=== PATIENT | female | born 1995 | race African-American/Black ===

== ENCOUNTER 2023-04-14 17:30 | Inpatient (IN) | payer MEDICAID ==
[~2023-04-14] VITALS: Ht 165.1 cm; Wt 66.0 kg
[2023-04-14] MEDS ORDERED: HALOPERIDOL 5 MG TABLET PO PRN (18:30)
[2023-04-14] MEDS ORDERED: ZOLPIDEM TARTRATE 10 MG TABLET PO PRN (18:30)
[2023-04-14] MEDS ORDERED: LORazepam 2 MG TABLET PO PRN (18:30)
[2023-04-14] MEDS ORDERED: INFLUENZA VIRUS VACCINE QVS 2023-24 (6MO+)/PF 60 MCG/0.5 ML SYRINGE IM. ONE (22:00)
[2023-04-14] MEDS ORDERED: PNEUMOCOCCAL VACCINE POLYVALENT 0.5 ML SYRINGE [PPSV23] IM. ONE (22:00)
[2023-04-14 22:46] VITALS: BP 121/76; PULSE 62; RESP 21; TEMP 98; O2SAT 96
[2023-04-15 08:07] LABS: BAND NEUTROPHILS % (MANUAL) 0 % (0-5)
[2023-04-15 08:27] LABS: HEMATOCRIT 36.9 % (36-46); HEMOGLOBIN 11.8 g/dL (12.0-16.0); MEAN CORPUSCULAR HEMOGLOBIN 25.3 pg (26.0-34.0); MEAN CORPUSCULAR HGB CONC 32.1 G/dL (31.0-37.0); MEAN CORPUSCULAR VOLUME 79 fL (80-100); PLATELET COUNT (AUTO) 331 K/uL (150-450); RED BLOOD CELL COUNT(AUTO) 4.68 MIL/uL (4.00-5.20); RED CELL DISTRIBUTION WIDTH 15.1 % (11.5-14.5)
[2023-04-15 08:38] VITALS: BP 129/85; PULSE 67; RESP 16; TEMP 98.2; O2SAT 98
[2023-04-15 08:40] LABS: HEMOGLOBIN A1C 5.4 % (3.8-5.6)
[2023-04-15 08:55] LABS: ALANINE AMINOTRANSFERASE 23 U/L (12-78); ALBUMIN 3.9 g/dL (3.4-5.0); ALKALINE PHOSPHATASE 50 U/L (46-116); ANION GAP 8 mmol/L (8-16); ASPARTATE AMINOTRANSFERASE 25 U/L (15-37); BILIRUBIN,TOTAL 0.6 mg/dL (0.1-1.0); CALCIUM, TOTAL 9.5 mg/dL (8.8-10.5); CARBON DIOXIDE 28 mmol/L (22-29); CHLORIDE 103 mmol/L (98-107); CHOL/HDL RATIO 2.2 (3.9-5.7); CHOLESTEROL 146 mg/dL (131-200); CREATININE 0.94 mg/dL (0.60-1.30); FREE T4 (FREE THYROXINE) 1.12 ng/dL (0.76-1.46); GLOMERULAR FILTR. RATE CALC > 60 mL/min (>60); GLUCOSE,RANDOM 118 mg/dL (70-110); HDL CHOLESTEROL 66 mg/dL (40-60); LDL CHOL (CALC.) 66 mg/dL (0-130); POTASSIUM 4.1 mmol/L (3.5-5.1); SODIUM SERUM 139 mmol/L (136-145); THYROID STIMULATING HORMONE 3.34 uIU/mL (0.36-3.74); TOTAL PROTEIN, SERUM 7.5 g/dL (6.4-8.2); TRIGLYCERIDES 69 mg/dL (15-150); UREA NITROGEN, BLOOD 12 mg/dL (7-18)
[2023-04-15 09:17] LABS: LYMPHOCYTES % (MANUAL) 38 % (22-44); MONOCYTES % (MANUAL) 11 % (2-9); RBC MORPHOLOGY COMMENT NORMAL RBC MORPH; SEGMENTED NEUTROPHILS % 51 % (40-70); TOTAL CELLS COUNTED 100
[2023-04-15 10:00] VITALS: RESP 18
[2023-04-15] MEDS: ACETAMINOPHEN 325 MG TABLET PO PRN ×2 (10:00→19:29)
[2023-04-15 11:00] VITALS: RESP 17
[2023-04-15 22:13] VITALS: BP 115/75; PULSE 62; RESP 18; TEMP 97
[2023-04-16 08:14] VITALS: BP 132/92; PULSE 69; RESP 18; TEMP 98; O2SAT 100
== END 2023-04-16 11:33 | disposition home or self-care (01) | DRG 751 ==
LOC: UNDOADMIN 21:13 → B3A 21:13
PROVIDERS: ADMIT Psychiatry & Neurology Child & Adolescent Psychiatry; ATTEND Psychiatry & Neurology Child & Adolescent Psychiatry
DX: F33.1 Major depressive disorder, recurrent, moderate (principal); D64.9 Anemia, unspecified; F41.9 Anxiety disorder, unspecified; J45.909 Unspecified asthma, uncomplicated; R73.9 Hyperglycemia, unspecified
CPT/HCPCS: 80053; 80061; 83036; 84439; 84443; 85007; 85027